=== PATIENT | female | born 1950 | race Caucasian/White ===

== ENCOUNTER 2018-01-17 09:58 | Outpatient (REF) | payer BC, SELFPAY ==
[2018-01-17 22:47] LABS: ALT 30 U/L (12-78); AST 22 U/L (15-37); Albumin 4.1 g/dL (3.4-5.0); Alkaline Phosphatase 95 U/L (46-116); Anion Gap 9.1 mmol/L (3-11); BUN 14 mg/dL (7-18); Bilirubin, Total 0.5 mg/dL (0.2-1.0); CO2 29.9 mmol/L (21.0-32.0); Calcium 8.6 mg/dL (8.5-10.1); Chloride 104 mmol/L (98-107); Cholesterol 200 mg/dL (50-200); Glucose 94 mg/dL (70-100); HDL Cholesterol 92 mg/dL (40-60); LDL CHOLESTEROL 95 mg/dL (<100); Potassium 4.2 mmol/L (3.5-5.1); Sodium 143 mmol/L (136-145); TSH (W/Ref FT4) 1.99 uIU/mL (0.358-3.74); Total Protein 7.1 g/dL (6.4-8.2); Triglyceride 63 mg/dL (30-150)
== END 2018-01-17 10:18 ==
LOC: NCHCN 09:58
PROVIDERS: PCP Internal Medicine; Visit Provider Family Medicine
DX: I10 Essential (primary) hypertension (principal); E78.5 Hyperlipidemia, unspecified; E03.9 Hypothyroidism, unspecified
CPT/HCPCS: 80053; 80061; 83721; 84443

== ENCOUNTER 2018-02-17 11:20 | Outpatient (REF) | payer BC, SELFPAY ==
--- NOTE | 2018-02-17 09:30 | ENDOMET_PTH ---
PATIENT: Ramya Bauman LOC: [facility] U#:[id number] AGE/SX: 67/F ROOM: RE02/17/[address]: Estelle Alejo : 1950 BED: DIS: 02/17/2018 SPEC #: [id number] RECD: 02/20/18 12:24 STATUS: GINA REQ #: [id number] RALPH: 02/17/18 09:[address]: Estelle Alejo DEPT: Surgical Specimen RECD BY: Yoli Pathak ENTERED: 02/20/18 12:24 SP TYPE: Endomet OTHR DR: Chalo Brown Tissues: 1 - ENDOMETRIUM BX/ALICIA Procedures: GROSS AND MICRO LEVEL 4 Comments: [id number]
--- NOTE | 2018-02-17 09:30 | PAPFT_PTH ---
PATIENT: Ramya Bauman LOC: [facility] U#:[id number] AGE/SX: 67/F ROOM: RE02/17/[address]: Estelle Alejo : 1950 BED: DIS: 02/17/2018 SPEC #: [id number] RECD: 02/20/18 12:50 STATUS: GINA REJim #: [id number] RALPH: 02/17/18 09:[address]: Estelle Alejo DEPT: [facility] Cytology RECD BY: Yoli Pathak ENTERED: 02/20/18 12:50 SP TYPE: PAPFT OTHR DR: Chalo Brown Tissues: 1 - CX/ENDOCX FOR PAP SMEARS Procedures: PAP THIN PREP/[facility] Screening Comments: (UNSATISFACTORY FOR EVALUATION)
== END 2018-02-17 11:40 ==
LOC: NCHCN 11:20
PROVIDERS: PCP Internal Medicine; Visit Provider Family Medicine
DX: Z12.4 Encounter for screening for malignant neoplasm of cervix (principal); Z11.51 Encounter for screening for human papillomavirus (HPV); N95.0 Postmenopausal bleeding; N85.8 Other specified noninflammatory disorders of uterus
CPT/HCPCS: 88142; 88305; 87624

== ENCOUNTER 2018-03-22 18:38 | Outpatient (REF) | payer BC, SELFPAY ==
--- NOTE | 2018-03-22 16:30 | PAPFT_PTH ---
PATIENT: Ramya Bauman LOC: [facility] U#:[id number] AGE/SX: 67/F ROOM: RE03/22/[address]: Estelle Alejo : 1950 BED: DIS: 03/22/2018 SPEC #: [id number] RECD: 03/23/18 12:55 STATUS: GINA REQ #: [id number] RALPH: 03/22/18 16:[address]: Estelle Alejo DEPT: [facility] Cytology RECD BY: Yoli Pathak ENTERED: 03/23/18 12:55 SP TYPE: PAPFT OTHR DR: Chalo Brown Tissues: 1 - CX/ENDOCX FOR PAP SMEARS Procedures: PAP THIN PREP/[facility] Screening Comments: [id number]
== END 2018-03-22 18:58 ==
LOC: NCHCN 18:38
PROVIDERS: PCP Internal Medicine; Visit Provider Family Medicine
DX: Z12.4 Encounter for screening for malignant neoplasm of cervix (principal)
CPT/HCPCS: 88142

== ENCOUNTER 2024-03-22 16:24 | Outpatient (REF) | payer MEDICARE, SELFPAY ==
[2024-03-22 15:51] LABS: Hemoglobin A1C 5.8 % (<5.7)
[2024-03-22 16:00] LABS: ALT 31 U/L (14-59); AST 30 U/L (15-37); Albumin 3.9 g/dL (3.4-5.0); Alkaline Phosphatase 86 U/L (46-116); Anion Gap 6.6 mmol/L (3-11); BUN 14 mg/dL (7-18); Bilirubin, Total 0.52 mg/dL (0.2-1.0); CO2 32.4 mmol/L (21.0-32.0); CREATININE 0.8 mg/dL (0.55-1.02); Calcium 9.2 mg/dL (8.5-10.1); Calculated LDL 99 mg/dL (<100); Chloride 105 mmol/L (98-107); Cholesterol 210 mg/dL (<200); Estimated GFR 78.24 (mL/min/1.73m2); Glucose 96 mg/dL (74-106); HDL Cholesterol 96 mg/dL (40-60); Potassium 4.3 mmol/L (3.5-5.1); Sodium 144 mmol/L (136-145); TSH (W/Ref FT4) 0.68 uIU/mL (0.36-3.74); Total Protein 7.4 g/dL (6.4-8.2); Triglyceride 78 mg/dL (<150); Vitamin D 25 Total 57.8 ng/mL (30-100)
== END 2024-03-22 16:25 | disposition home or self-care (01) ==
LOC: NCHCN 16:24
PROVIDERS: PCP Internal Medicine; Visit Provider Family Medicine
DX: E78.5 Hyperlipidemia, unspecified (principal); E03.9 Hypothyroidism, unspecified; I10 Essential (primary) hypertension; R73.03 Prediabetes
CPT/HCPCS: 80053; 80061; 82306; 83036; 84443